=== PATIENT | male | born 1935 | race Caucasian/White ===

== ENCOUNTER → 2016-11-10 | Outpatient (CLI) | payer MEDICARE, MEDICAID | LOC: COL.VAS 14:30 | DX: I82.B12 Acute embolism and thrombosis of left subclavian vein (principal) ==

== ENCOUNTER 2017-04-23 09:45 | Outpatient (CLI) | payer MEDICARE, MEDICAID ==
[~2017-04-23] VITALS: Ht 180.3 cm; Wt 69.3 kg
[2017-04-23] VITALS (15 sets, daily range): BP systolic 98–149; BP diastolic 60–87; PULSE 58–95; TEMP 97.1
[~2017-04-23 09:45] MED LIST: BENADRYL25 M2 PO; FOLIC ACID0.4 MG PO; NATURAL IRON65 MG PO; NORCO 325 MG-51 TAB PO; PROSCAR 5MG5 MG PO; VITAMINC1000TA PO
[2017-04-23] MEDS ORDERED: FOLIC ACID 11 MG/TA1 PO (09:58)
[2017-04-23] MEDS ORDERED: VITAMIN C500 MG PO (09:59)
[2017-04-23] MEDS ORDERED: REMERON 15M15 MG/TA1 PO (10:00)
[2017-04-23] MEDS ORDERED: ATARAX 10MG10 MG/TAB PO (10:01)
== END 2017-04-23 15:57 | disposition home or self-care (01) ==
LOC: COL.RAD 09:45
DX: R91.1 Solitary pulmonary nodule (principal)